=== PATIENT | male | born 1950 | race Caucasian/White ===

== ENCOUNTER → 2019-05-29 09:06 | Outpatient (BNVA) | payer MEDICARE, OTHER, SELFPAY | PROVIDERS: Family Provider Nurse Practitioner Family; Visit Provider Nurse Practitioner Family | DX: R05 Cough (principal) | CPT/HCPCS: 71046 ==

== ENCOUNTER → 2019-06-20 11:49 | Outpatient (BNVA) | payer MEDICARE, OTHER, SELFPAY | PROVIDERS: Family Provider Nurse Practitioner Family; PCP Nurse Practitioner Family; Visit Provider Nurse Practitioner Family | DX: I10 Essential (primary) hypertension (principal); G47.33 Obstructive sleep apnea (adult) (pediatric); E78.5 Hyperlipidemia, unspecified; R00.1 Bradycardia, unspecified; Z12.11 Encounter for screening for malignant neoplasm of colon | CPT/HCPCS: 80053; 80061; 84443; 85025 ==

== ENCOUNTER 2019-10-09 11:09 | Outpatient (CLI) | payer MEDICARE, OTHER, SELFPAY ==
[2019-10-09 11:22] VITALS: BMI 32.3
--- NOTE | 2019-10-09 11:26 | ECG_ITS ---
[facility] Test Date: 2019-10-09 Pat Name: Chivo Long Department: Room: Gender: Male Claims Assistant: Marley Hernández : 1950 Requested By: Farhana Diallo Order Number: [id number] Roberto MD: Octavio Weinberg M.D. Interpretive Statements NAME OF STUDY: TREADMILL STRESS ECHOCARDIOGRAM INDICATION: [Chest Pain, ] Procedure: At baseline patient's heart rate was 55 with a blood pressure of 151/83. Baseline EKG showed normal sinus rhythm with incomplete right bundle branch block. Patient achieved 10.2 METS and exercised for 6 minutes and 26 seconds on Guille protocol. He achieved a maximum heart rate of 140 that is 92% of his maximum predicted heart rate. At peak exercise, he was in sinus tachycardia with occasional PVCs. No significant ST depressions or elevations were noted. Patient did have a hypertensive response to exercise with peak blood pressure of 208/79 mmHg. He had minor chest discomfort which resolved in recovery. At the end of recovery his heart rate was 71 and a blood pressure 157/90 mmHg. Conclusion: 1) Good functional capacity with 10 METS achieved on Guille protocol. 2) No ischemic changes noted on EKG 3) Stress echocardiogram images will be interpreted separately. Electronically Signed On 10-10-2019 9:10:20 CDT by Octavio Weinberg M.D. [email or web address]
[2019-10-09 11:46] VITALS: BP 172/78; PULSE 80
--- NOTE | 2019-10-09 12:15 | USCV_ITS ---
Chivo Long Age: 69 Gender: M : 1950 Exam Date: 10/09/2019 11:24 Ordering Phys: Octavio Weinberg M.D ([email or web address]) Technologist: Kiara Emerson [place] [facility] [place]: Chest pain Rhythm: Sinus Patient History: HTN,HLD Cardiac Medications: Metoprolol,Aspirin, Statin, Non- statin Medications in past 24 hours: Aspirin, Statin, Non statin Contrast: Stress Results Protocol: Guille Total dose(mL): Exercise Duration (min:sec): 6:26 METS: 10.2 Resting HR: 55 Resting BP: 155 / 83 Peak HR: 140 Peak BP: 208 / 90 Max Predicted HR: 152 92 % Max Predicted HR Target HR: 129 Double Product: 13556 Stress Summary: Patient exercised for 6 min and 26 sec on guille protocol and achieved 10.2 METS. Good Exercise capacity The patient's target heart rate was achieved The patient had a hypertensive blood pressure response BP Response: Normal Reason for Termination: Test terminated after reaching target heart rate (85% max predicted) Cardiac Symptoms: Chest pain, Pt stated occacional twinges of brief chest pain during test. ECG Analysis Resting ECG: Normal sinus rhythm Stress ECG: Sinus tachycardia. No significant ST-T wave changes noted. Arrhythmia: Occasional PVCs at peak heart rate. MEASUREMENTS (Male/Female) Normal Values FINDINGS At baseline echo shows normal LV systolic function with EF of 55 to 60%. No regional wall motion abnormalities are noted. At peak exercise, no regional wall motion abnormalities and LV EF of more than 70%. CONCLUSIONS Normal exercise stress test Baseline LV systolic function is normal with EF of 55 to 60%. No regional wall motion abnormalities at target heart rate with EF of more than 70%. Some of the images were obtained at 3-5 beat lower than target heart rate, which reduces the sensitivity of the test, however given his good exercise capacity (>10 METS achieved) and no ischemic changes on EKG it is a normal exercise stress test Octavio Weinberg MD (Electronically Signed) Final Date: 10 October 2019 09:25 S
== END 2019-10-09 11:10 | disposition home or self-care (01) ==
LOC: CDL 11:10
PROVIDERS: PCP Nurse Practitioner Family; Visit Provider Family Medicine
DX: R07.9 Chest pain, unspecified (principal)
CPT/HCPCS: 93017; 93350

== ENCOUNTER → 2019-12-27 11:33 | Outpatient (BNVA) | payer MEDICARE, OTHER, SELFPAY | PROVIDERS: PCP Nurse Practitioner Family; Visit Provider Family Medicine | DX: E78.5 Hyperlipidemia, unspecified (principal); I10 Essential (primary) hypertension; K63.5 Polyp of colon; K21.9 Gastro-esophageal reflux disease without esophagitis | CPT/HCPCS: 80053; 80061; 85025 ==

== ENCOUNTER → 2020-01-11 10:24 | Outpatient (BNVA) | payer MEDICARE, OTHER, SELFPAY | PROVIDERS: PCP Nurse Practitioner Family; Visit Provider Surgery | DX: Z20.828 Contact with and (suspected) exposure to other viral communicable diseases (principal); Z01.812 Encounter for preprocedural laboratory examination | CPT/HCPCS: 87635 ==

== ENCOUNTER 2020-01-16 08:21 | Day surgery (SDC) | payer MEDICARE, OTHER, SELFPAY ==
[2020-01-15 07:53] VITALS: BMI 32.3
[2020-01-16 08:48] VITALS: BP 121/73; PULSE 48; RESP 18; TEMP 35.8; O2SAT 98
[2020-01-16] MEDS: sodium chloride 0.9% 1,000 ML 30 ML IV (08:51)
--- NOTE | 2020-01-16 09:49 | P.ANESASSM_ITS ---
Pre-Anesthetic Assessment Pre-Anesthetic Assessment: Height/Weight: Height 1.68 m Weight 90.718 kg Temp Pulse Resp BP Pulse Ox 96.5 F L 48 L 18 121/73 98 01/16/20 08:48 01/16/20 08:48 01/16/20 08:48 01/16/20 08:48 01/16/20 08:48 Preop Diagnosis: History of colon polyps Proposed Procedure: Operation Date: 01/16/20 09:30 Proposed Procedures p Colonoscopy 13061 K63.5(Not Applicable) - Jesse Hilario MD Was Beta Thiago taken within 24 hours: Yes Last intake: Intake Last Liquid Date 01/15/20 Last Liquid Time 21:00 Last Solid Date 02/13/20 Last Solid Time 19:00 Social: Social History: No alcohol and No tobacco Exam: Pre-Anes Outpt Exam: alert, oriented x 3, clear to auscultation bilaterally and regular rate & rhythm Airway: Submandibular: WNL Cervical ROM: WNL MP: 2 Dentition: Full Pulmonary: Pulmonary: Asthma CV/HEM: CV/HEM: CAD and HTN : : None reported Hepatic: Hepatic: None reported GI: GI: GERD Metabolic: Metabolic: Morbid obesity Musc/skel: Musc/skel: None reported Neuropsych: Neuropsych: None reported Anesthetic Plan: ASA status: 3 Anesthesia: MAC Risk of > 500 ml blood loss (7ml/kg in children): No Meds/Allergies Current Medications: Current Medications Generic Name Dose Route Start Last Admin Trade Name Freq PRN Reason Stop Dose Admin Sodium Chloride 1,000 mls @ 30 ml s/hr 01/16/20 08:45 01/16/20 08:51 Sodium Chloride 0.9% IV 30 mls/hr .Q24H DONNA Administration PFSH Anesthesia PFSH: Medical History CKD (chronic kidney disease) Hyperlipidemia Hypertension MYRIAM (obstructive sleep apnea) Presbycusis Surgical History No pertinent past surgical history Family History Mother , age 86 Lung disease Social History Smoking and tobacco status: never smoked Second hand smoke exposure: No Alcohol intake: current Alcohol intake frequency: few times a month Lives independently: Yes Household members: spouse Housing: House Marital status: service: Yes Current occupational status: employed Current occupation: [employer] History of recent travel: No Current gender identity: Male Data Anesthesia Cardiac Studies: No Data to Display
--- NOTE | 2020-01-16 09:57 | W.PM.OPSUD ---
Surgery/Procedure H&P Update DATE OF PROCEDURE: January 16, 2020 DATE H&P PERFORMED: 01/07/20 H&P UPDATE INFORMATION: I have reviewed H&P completed within last 30 days, I have examined patient prior to procedure and No changes to prior documentation PREOP DIAGNOSIS: History of colon polyps PRIMARY INDICATION FOR PROCEDURE: The same PLANNED PROCEDURE: Operation Date: 01/16/20 09:30 Proposed Procedures p Colonoscopy 82681 K63.5(Not Applicable) - Jesse Hilario MD
[2020-01-16 10:34] VITALS: BP 110/64; PULSE 60; RESP 18; TEMP 36.8; O2SAT 96
[2020-01-16 10:50] VITALS: BP 118/90; PULSE 60; O2SAT 95
--- NOTE | 2020-01-16 13:52 | ANE.PACU2 ---
Inpatient post-anesthesia follow up: Airway intact: Yes Vital signs: Temperature 98.2 F Pulse Rate 60 Respiratory Rate 18 Blood Pressure 118/90 Pulse Oximetry 95 Oxygen Delivery Me thod Room Air Oxygen Flow Rate Fraction of Inspir ed Oxygen Hydration adequate: Yes Nausea and vomiting: No Pain level: 1 Mental status: Baseline
== END 2020-01-16 11:07 | disposition home or self-care (01) ==
PROVIDERS: PCP Family Medicine; Visit Provider Surgery
PROC: 0DJD8ZZ Inspection of Lower Intestinal Tract, Via Natural or Artificial Opening Endoscopic (ICD-10-PCS; CPT 45378; principal; 2020-01-16 09:30)
DX: Z12.11 Encounter for screening for malignant neoplasm of colon (principal); Z86.010 Personal history of colon polyps; J45.909 Unspecified asthma, uncomplicated; I25.10 Atherosclerotic heart disease of native coronary artery without angina pectoris; K21.9 Gastro-esophageal reflux disease without esophagitis; E66.01 Morbid (severe) obesity due to excess calories; Z68.32 Body mass index [BMI] 32.0-32.9, adult; E78.5 Hyperlipidemia, unspecified; G47.33 Obstructive sleep apnea (adult) (pediatric); I12.9 Hypertensive chronic kidney disease with stage 1 through stage 4 chronic kidney disease, or unspecified chronic kidney disease; N18.9 Chronic kidney disease, unspecified
CPT/HCPCS: 12345; G0121; J2704; J3490; J7030

== ENCOUNTER → 2020-01-23 16:40 | Outpatient (BNVA) | payer MEDICARE, OTHER, SELFPAY | PROVIDERS: PCP Family Medicine; Visit Provider Nurse Practitioner Family | DX: Z20.828 Contact with and (suspected) exposure to other viral communicable diseases (principal); R53.83 Other fatigue | CPT/HCPCS: 80053; 82607; 83735; 84443; 85025; 87635 ==

== ENCOUNTER → 2020-05-21 10:40 | Outpatient (BNVA) | payer MEDICARE, OTHER, SELFPAY | PROVIDERS: PCP Family Medicine; Visit Provider Nurse Practitioner Family | DX: R07.9 Chest pain, unspecified (principal); I25.10 Atherosclerotic heart disease of native coronary artery without angina pectoris | CPT/HCPCS: 71046 ==

== ENCOUNTER 2020-05-23 09:26 | Outpatient (CLI) | payer MEDICARE, OTHER, SELFPAY ==
--- NOTE | 2020-05-23 09:30 | CT_ITS ---
WS: [id number] CT CHEST INTRAVENOUS CONTRAST HISTORY: R07.9 - Chest pain, unspecified TECHNIQUE: Contiguous 5 mm axial imaging performed on the thorax. Coronal and sagittal reformats are submitted. All CT scans at [facility] use at least one of these dose optimization techniq ues: automated exposure control; mA and/or kV adjustment per patient size (includes targeted exams wh ere dose is matched to clinical indication); or iterative reconstruction. CONTRAST: Visipaque 320; 95 mL IV. DLP: 900.48 mGy.cm COMPARISON: None available. Lungs and central airway: Normal. Pleura: Normal. No pleural effusion. Heart and pericardium: Normal size heart with no pericardial effusion. Mediastinum and camilo: No mediastinum or hilar adenopathy. Vessels: Mild atherosclerosis aorta and coronary arteries. Normal size pulmonary artery. Chest wall and lower neck: No soft tissue masses. Upper abdomen: Mild hepatic steatosis and hepatomegaly. No bile duct dilatation. Osseous structures: No destructive process. CT/CT chest w con* [id number] IMPRESSION: 1. No pneumonia or pulmonary mass. 2. Mild atherosclerosis aorta and LEFT anterior descending coronary artery. 3. Mild hepatic steatosis. 4. No adenopathy.
[2020-05-23 10:01] LABS: Blood Urea Nitrogen 17 mg/dL (8-23); Glomerular Filtration Rate 54.9 mL/min (90-130)
[2020-05-23] MEDS: iodixanol 320 mg/mL 100mL Btl IV (10:39)
== END 2020-05-23 09:27 | disposition home or self-care (01) ==
PROVIDERS: PCP Family Medicine; Visit Provider Nurse Practitioner Family
DX: R07.9 Chest pain, unspecified (principal); K76.0 Fatty (change of) liver, not elsewhere classified; I70.0 Atherosclerosis of aorta
CPT/HCPCS: 71260; 82565; 84520

== ENCOUNTER → 2020-06-23 12:14 | Outpatient (BNVA) | payer MEDICARE, OTHER, SELFPAY | PROVIDERS: PCP Family Medicine; Visit Provider Family Medicine | DX: E78.5 Hyperlipidemia, unspecified (principal); I10 Essential (primary) hypertension; K21.9 Gastro-esophageal reflux disease without esophagitis; Z68.33 Body mass index [BMI] 33.0-33.9, adult | CPT/HCPCS: 80053; 80061; 84443; 85025 ==

== ENCOUNTER → 2020-06-30 10:04 | Outpatient (BNVA) | payer MEDICARE, OTHER, SELFPAY | PROVIDERS: PCP Family Medicine; Visit Provider Family Medicine | DX: R79.89 Other specified abnormal findings of blood chemistry (principal) | CPT/HCPCS: 84439; 84443; 84481 ==

== ENCOUNTER → 2020-11-17 13:30 | Outpatient (BNVA) | payer MEDICARE, OTHER, SELFPAY | PROVIDERS: PCP Family Medicine; Visit Provider Nurse Practitioner Family | DX: R41.0 Disorientation, unspecified (principal); R00.1 Bradycardia, unspecified; I10 Essential (primary) hypertension; Z23 Encounter for immunization; E78.5 Hyperlipidemia, unspecified; N18.9 Chronic kidney disease, unspecified | CPT/HCPCS: 80053; 80061; 82607; 83735; 84443; 85025 ==

== ENCOUNTER 2020-12-02 07:39 | Outpatient (CLI) | payer MEDICARE, OTHER, SELFPAY ==
--- NOTE | 2020-12-02 08:00 | MR_ITS ---
WS: [id number] MRI HEAD WITH CONTRAST TECHNIQUE: Sagittal T1, T2 axial, T2 axial FLAIR, axial susceptibility weighted imaging, axial diffus ion weighted images, and coronal T2 images were obtained. Pre and post-T1 axial and post T1 coronal i mages. ADC and FSPGR images. CLINICAL INFORMATION: R41.0 - Disorientation, unspecified COMPARISON: None. FINDINGS: No evidence of restricted diffusion to suggest acute ischemia. Ventricular system and basal cisterns are patent. No hemosiderin on susceptibly weighted images. Minimal small vessel changes. Moderate par enchymal volume loss. Normal posterior fossa. Normal vascular flow voids at the skull base. No extra- axial fluid collections. No evidence of mass or mass effect. Mild mucosal thickening paranasal sinuse s. Mastoid air cells well aerated. No hemosiderin on susceptibly weighted images. Normal optic chiasm and pituitary infundibulum. Tempor al lobes and hippocampal formations are normal in appearance. No abnormal gadolinium enhancement. Nor mal dural venous sinuses. MR/MR head wo/w con [id number] IMPRESSION: 1. No evidence of restricted diffusion to suggest acute ischemia. 2. Minimal small vessel changes with moderate parenchymal volume loss. 3. Temporal lobes and hippocampal formations are normal in appearance. 4. No hemosiderin on the susceptibly weighted images. 5. No abnormal intracranial enhancement.
[2020-12-02] MEDS: gadobenate dimeglumine 20 mL vial IV (08:50)
== END 2020-12-02 07:40 | disposition home or self-care (01) ==
LOC: RADSHAW 07:40
PROVIDERS: PCP Family Medicine; Visit Provider Nurse Practitioner Family
DX: R41.0 Disorientation, unspecified (principal)
CPT/HCPCS: 70553; A9577

== ENCOUNTER 2021-01-05 06:53 | Outpatient (CLI) | payer MEDICARE, OTHER, SELFPAY ==
--- NOTE | 2021-01-05 | USCV_ITS ---
Chivo Long Age: 70 Gender: M : 1950 Exam Date: 01/05/2021 07:39 Ordering Phys: Ayleen Rock OPTICAL ENGINEERING MANAGER Technologist: Christina Kline [place] [facility] [place] Indication: DIZZINESS Risk Factors: Previous Vascular Surgery: Right Brachial BP: / Left Brachial BP: / Right Left Velocity (cm/s) Spectral Plaque Velocity (cm/s) Spectral Plaque Syst/Diast Broadening Syst/Diast Broadening 99.20/ 15.40 Prox CCA 108.90/ 28.70 70.10/ 23.10 Mid CCA 85.40 / 31.60 69.20/ 25.60 Distal CCA 88.20 / 25.40 50.70/ 19.20 Prox ICA 59.80 / 29.50 79.70/ 33.50 Mid ICA 92.70 / 34.50 88.90/ 41.00 Distal ICA 75.60 / 31.50 55.90 ECA 69.10 0.90 ICA/CCA 0.85 Antegrade Vertebral Antegrade 60.70/ 23.10 cm/s 54.00/ 26.50 cm/s Tri Subclavian Tri 53.60 100.3 0 FINDINGS Comparison: none available. No significant elevation of systolic or diastolic velocities. Waveforms are normal. Mild bilateral scattered calcified plaque through the bifurcations. CONCLUSIONS Bilateral ICA stenosis less than 50%. Mild carotid atherosclerosis. Dr. Pat Lucio DO (Electronically Signed) Final Date: 05 January 2021 08:19 S
--- NOTE | 2021-01-05 08:00 | USCV_ITS ---
Chivo Long Age: 70 Gender: M : 1950 Exam Date: 01/05/2021 07:17 Ordering Phys: Ayleen RockP HEAD SOFT SUGAR OPERATOR Technologist: Christina Kline [place] [facility] [place]: bradycardia BP: 135 / 80 HR: 43 Rhythm: Sinus Technical Quality: Adequate MEASUREMENTS (Male / Female) Normal Values 2D ECHO LV Diastolic Diameter PLAX 5.1 cm 4.2 - 5.9 / 3.9 - 5.3 cm LV Systolic Diameter PLAX 2.9 cm IVS Diastolic Thickness 1.2 cm 0.6 - 1.0 / 0.6 - 0.9 cm IVS Systolic Thickness 1.9 cm LVPW Diastolic Thickness 1.4 cm 0.6 - 1.0 / 0.6 - 0.9 cm LVPW Systolic Thickness 2.5 cm LVOT Diameter 2.0 cm LV Ejection Fraction 2D Teich 74.3 % LV Ejection Fraction MOD 2C 66.8 % LV Ejection Fraction 2C AL 68.2 % LA Diameter 3.1 cm LA Width 2.9 cm LA Height 4.6 cm RA Width 3.1 cm RA Height 3.7 cm Aorta at Sinotubular Diameter 3.0 cm M-MODE Aortic Annulus Diameter 3.1 cm LA Ao Ratio MM 1.0 MV E Point Septal Separation 0.6 cm DOPPLER AV Peak Velocity 137.0 cm/s LVOT Peak Velocity 85.0 cm/s AV Area Cont Eq vti 2.2 cm squared AV Area Cont Eq pk 2.0 cm squared MV Peak Velocity 90.0 cm/s MV Area PHT 3.6 cm squared Mitral E to A Ratio 1.0 MV E' Velocity 43.5 cm/s Mitral E to MV E' Ratio 8.3 Mitral E to LV E' Lateral Ratio 7.9 Mitral E to LV E' Septal Ratio 8.8 TR Peak Velocity 193.7 cm/s TR Peak Gradient 15.0 mmHg TR Mean Velocity 128.6 cm/s TR Mean Gradient 7.7 mmHg TR Velocity Time Integral 46.1 cm TV Peak E Velocity 64.0 cm/s Right Atrial Pressure 3.0 mmHg Pulmonary Artery Systolic Pressu 18.0 mmHg PV Peak Velocity 71.0 cm/s RV Acceleration Time 0.1 s RV Ejection Time 0.4 s RV AcT/ET 0.2 FINDINGS Left Ventricle Normal left ventricular size. LV systolic function is normal with EF of 55-60%. No regional wall motion abnormalities. Normal diastolic filling pattern. Right Ventricle The right ventricle is normal in size and function. Right Atrium The right atrium is normal in size. Left Atrium The left atrium is normal in size. Mitral Valve Moderate mitral annular calcification is seen without significant stenosis or prolapse. There is mild mitral regurgitation. Aortic Valve Structurally normal aortic valve without significant sclerosis or stenosis. There is no aortic regurgitation. Tricuspid Valve Structurally normal tricuspid valve without significant stenosis or regurgitation. Insufficient TR jet to calculate RVSP Pulmonic Valve Structurally normal pulmonic valve without significant stenosis. There is no pulmonic regurgitation. Pericardium Normal pericardium without effusion. Aorta Normal ascending aorta dimension. CONCLUSIONS LV systolic function is normal with EF 55 to 60%. Normal diastolic function. Moderate mitral annular calcification. Mild mitral regurgitation. No comparison studies are available. Octavio Weinberg MD (Electronically Signed) Final Date: 12 January 2021 11:08 S
== END 2021-01-05 06:54 | disposition home or self-care (01) ==
PROVIDERS: PCP Family Medicine; Visit Provider Nurse Practitioner Family
DX: R42 Dizziness and giddiness (principal); I65.23 Occlusion and stenosis of bilateral carotid arteries
CPT/HCPCS: 93306; 93880

== ENCOUNTER → 2021-06-05 08:56 | Outpatient (BNVA) | payer MEDICARE, OTHER, SELFPAY | PROVIDERS: PCP Family Medicine; Visit Provider Family Medicine | DX: Z09 Encounter for follow-up examination after completed treatment for conditions other than malignant neoplasm (principal); E78.5 Hyperlipidemia, unspecified; I10 Essential (primary) hypertension; K21.9 Gastro-esophageal reflux disease without esophagitis; Z12.5 Encounter for screening for malignant neoplasm of prostate; R07.9 Chest pain, unspecified | CPT/HCPCS: 80053; 80061; 84443; 85025; G0103 ==

== ENCOUNTER → 2021-12-16 09:56 | Outpatient (BNVA) | payer MEDICARE, OTHER, SELFPAY | PROVIDERS: PCP Family Medicine; Visit Provider Family Medicine | DX: E78.5 Hyperlipidemia, unspecified (principal); I10 Essential (primary) hypertension; K21.9 Gastro-esophageal reflux disease without esophagitis; Z23 Encounter for immunization | CPT/HCPCS: 80053; 80061; 84443; 85025 ==

== ENCOUNTER 2022-03-09 13:57 | Outpatient (CLI) | payer MEDICARE, OTHER, SELFPAY ==
--- NOTE | 2022-03-09 14:19 | XR_ITS ---
WS: [id number] Exam: XR lumbar spine 6V w f/e [id number] Date/Time of Exam: 03/09/2022 2:34 PM Reason For Exam: M54.50 - Low back pain, unspecified No acute fracture or dislocation. No significant flexion or extension instability. Moderate degenerat kenyetta narrowing of the L3-4 disc. Spondylosis noted. Facet arthropathy at L4-5 and L5-S1. Sacralization of L5. XR/XR lumbar spine 6V w f/e [id number] IMPRESSION: 1. No fracture or instability identified. 2. Degenerative changes as detailed above.
== END 2022-03-09 13:58 | disposition home or self-care (01) ==
PROVIDERS: PCP Family Medicine; Visit Provider Family Medicine
DX: M48.061 Spinal stenosis, lumbar region without neurogenic claudication (principal); M47.816 Spondylosis without myelopathy or radiculopathy, lumbar region; M47.817 Spondylosis without myelopathy or radiculopathy, lumbosacral region
CPT/HCPCS: 72114

== ENCOUNTER 2022-04-14 06:00 | Outpatient (RCR) | payer MEDICARE, OTHER, SELFPAY | END 2022-05-14 23:59 | disposition home or self-care (01) | LOC: TPT 06:00 | PROVIDERS: PCP Family Medicine; Visit Provider Family Medicine | DX: M54.50 Low back pain, unspecified (principal); G89.29 Other chronic pain | CPT/HCPCS: 97110; 97162 ==

== ENCOUNTER 2022-05-15 06:00 | Outpatient (RCR) | payer MEDICARE, OTHER, SELFPAY | END 2022-06-10 23:59 | disposition home or self-care (01) | LOC: TPT 06:00 | PROVIDERS: PCP Family Medicine; Visit Provider Family Medicine | DX: G89.29 Other chronic pain (principal); M54.50 Low back pain, unspecified | CPT/HCPCS: 97110 ==

== ENCOUNTER → 2022-06-15 12:00 | Outpatient (BNVA) | payer MEDICARE, OTHER, SELFPAY | PROVIDERS: PCP Family Medicine; Visit Provider Family Medicine | DX: E78.5 Hyperlipidemia, unspecified (principal); I10 Essential (primary) hypertension; K21.9 Gastro-esophageal reflux disease without esophagitis; M54.9 Dorsalgia, unspecified; Z12.5 Encounter for screening for malignant neoplasm of prostate; Z23 Encounter for immunization; Z79.899 Other long term (current) drug therapy | CPT/HCPCS: 80053; 80061; 84443; 85025; G0103 ==

== ENCOUNTER → 2023-03-21 10:00 | Outpatient (BNVA) | payer MEDICARE, OTHER, SELFPAY | PROVIDERS: PCP Family Medicine; Visit Provider Family Medicine | DX: I10 Essential (primary) hypertension (principal); E78.5 Hyperlipidemia, unspecified; K21.9 Gastro-esophageal reflux disease without esophagitis; Z79.899 Other long term (current) drug therapy | CPT/HCPCS: 80053; 80061; 84443; 85025 ==

== ENCOUNTER → 2023-07-28 07:58 | Outpatient (BNVA) | payer MEDICARE, OTHER, SELFPAY | PROVIDERS: PCP Family Medicine; Visit Provider Nurse Practitioner Family | DX: L82.0 Inflamed seborrheic keratosis (principal); L57.0 Actinic keratosis; S30.861A Insect bite (nonvenomous) of abdominal wall, initial encounter; X58.XXXA Exposure to other specified factors, initial encounter; D22.5 Melanocytic nevi of trunk; L81.4 Other melanin hyperpigmentation; L57.8 Other skin changes due to chronic exposure to nonionizing radiation; L85.3 Xerosis cutis | CPT/HCPCS: 17000; 17110; 99204 ==

== ENCOUNTER → 2023-09-27 13:00 | Outpatient (BNVA) | payer MEDICARE, OTHER, SELFPAY | PROVIDERS: PCP Family Medicine; Visit Provider Family Medicine | DX: Z12.5 Encounter for screening for malignant neoplasm of prostate (principal); I10 Essential (primary) hypertension; E78.5 Hyperlipidemia, unspecified; K21.9 Gastro-esophageal reflux disease without esophagitis | CPT/HCPCS: 80053; 80061; 84443; 85025; G0103 ==

== ENCOUNTER → 2024-03-27 09:27 | Outpatient (BNVA) | payer MEDICARE, OTHER, SELFPAY | PROVIDERS: Family Provider Nurse Practitioner Family; PCP Nurse Practitioner Family; Visit Provider Nurse Practitioner Family | DX: M25.511 Pain in right shoulder (principal); I10 Essential (primary) hypertension; E55.9 Vitamin D deficiency, unspecified; R07.9 Chest pain, unspecified; R93.6 Abnormal findings on diagnostic imaging of limbs; M75.101 Unspecified rotator cuff tear or rupture of right shoulder, not specified as traumatic; S41.011A Laceration without foreign body of right shoulder, initial encounter; M19.011 Primary osteoarthritis, right shoulder; X58.XXXA Exposure to other specified factors, initial encounter | CPT/HCPCS: 73030; 80053; 80061; 82306; 82607; 83735; 85025 ==

== ENCOUNTER 2024-04-02 09:09 | Outpatient (CLI) | payer MEDICARE, OTHER, SELFPAY ==
--- NOTE | 2024-04-02 09:30 | MR_ITS ---
WS: [id number] MRI RIGHT SHOULDER NONCONTRAST TECHNIQUE: Sagittal T2, coronal T1, T2 and proton density imaging. Axial gradient PDE imaging. CLINICAL INFORMATION: M25.511 - Pain in right shoulder COMPARISON: None. FINDINGS: Moderate degenerative arthritis AC joint with fluid and edema. Mild downsloping acromion with subacromial spurring. Impingement distal supraspinatus. Small amount of subacromial subdeltoid fluid. Small bursal surface tear distal supraspinatus deep to the acromion. Supraspinatus and infraspinatus are o therwise intact. Normal teres minor. Small subcoracoid effusion. Tendinopathy with partial intrasubstance tear involving the distal supraspinatus tendon and transverse ligament. Slight medial subluxation of the intra-articular biceps tendon. Tendinopathy with partial intrasubstance tear intra-articular biceps tendon. Moderate degenerative narrowing glenohumeral articulation. Biceps labral anchor appears intact. MR/MR shoulder RT wo con* [id number] IMPRESSION: 1. Moderate joint arthritis AC joint fluid and edema. 2. Subacromial impingement distal supraspinatus with small intrasubstance tear . 3. Tendinopathy with intrasubstance tear involving the distal subscapularis. 4. Slight medial subluxation of the biceps tendon within the bicipital groove. 5. Tendinopathy with partial intrasubstance tear involving the intra-articular biceps tendon which appears intact.
== END 2024-04-02 09:10 | disposition home or self-care (01) ==
PROVIDERS: Family Provider Nurse Practitioner Family; PCP Nurse Practitioner Family; Visit Provider Nurse Practitioner Family
DX: M25.511 Pain in right shoulder (principal); R93.6 Abnormal findings on diagnostic imaging of limbs; S46.811A Strain of other muscles, fascia and tendons at shoulder and upper arm level, right arm, initial encounter; X58.XXXA Exposure to other specified factors, initial encounter; M75.41 Impingement syndrome of right shoulder; M19.011 Primary osteoarthritis, right shoulder
CPT/HCPCS: 73221

== ENCOUNTER → 2024-04-13 07:57 | Outpatient (BNVA) | payer MEDICARE, OTHER, SELFPAY | PROVIDERS: Family Provider Nurse Practitioner Family; PCP Nurse Practitioner Family; Visit Provider Nurse Practitioner | DX: M19.011 Primary osteoarthritis, right shoulder (principal); M25.811 Other specified joint disorders, right shoulder; M67.911 Unspecified disorder of synovium and tendon, right shoulder | CPT/HCPCS: 20610; 73030; 99204; J1100; J2795; J3301 ==

== ENCOUNTER → 2024-04-20 11:51 | Outpatient (BNVA) | payer MEDICARE, OTHER, SELFPAY | PROVIDERS: PCP Nurse Practitioner Family; Visit Provider Nurse Practitioner Family | DX: R05.9 Cough, unspecified (principal) | CPT/HCPCS: 87400; 87426 ==

== ENCOUNTER → 2024-05-03 13:37 | Outpatient (BNVA) | payer MEDICARE, OTHER, SELFPAY | PROVIDERS: PCP Nurse Practitioner Family; Visit Provider Nurse Practitioner Family | DX: Z79.899 Other long term (current) drug therapy (principal) | CPT/HCPCS: 80076 ==

== ENCOUNTER → 2024-07-13 08:35 | Outpatient (BNVA) | payer MEDICARE, OTHER, SELFPAY | PROVIDERS: PCP Nurse Practitioner Family; Visit Provider Nurse Practitioner | DX: M19.011 Primary osteoarthritis, right shoulder (principal); M25.811 Other specified joint disorders, right shoulder; M67.911 Unspecified disorder of synovium and tendon, right shoulder | CPT/HCPCS: 20610; 99213; J1100; J2795; J3301; J9999 ==

== ENCOUNTER → 2024-08-01 08:36 | Outpatient (BNVA) | payer MEDICARE, OTHER, SELFPAY | PROVIDERS: PCP Nurse Practitioner Family; Visit Provider Nurse Practitioner Family | DX: L81.4 Other melanin hyperpigmentation (principal); L57.8 Other skin changes due to chronic exposure to nonionizing radiation; D22.5 Melanocytic nevi of trunk; L82.1 Other seborrheic keratosis; S50.862A Insect bite (nonvenomous) of left forearm, initial encounter; S50.861A Insect bite (nonvenomous) of right forearm, initial encounter; X58.XXXA Exposure to other specified factors, initial encounter; L82.0 Inflamed seborrheic keratosis; L29.89 Other pruritus; R20.8 Other disturbances of skin sensation; Z78.9 Other specified health status; L53.8 Other specified erythematous conditions; R58 Hemorrhage, not elsewhere classified | CPT/HCPCS: 17000; 17110; 99213 ==

== ENCOUNTER → 2024-09-27 10:37 | Outpatient (BNVA) | payer MEDICARE, OTHER, SELFPAY | PROVIDERS: PCP Nurse Practitioner Family; Visit Provider Nurse Practitioner Family | DX: I10 Essential (primary) hypertension (principal); Z12.5 Encounter for screening for malignant neoplasm of prostate | CPT/HCPCS: 80053; 80061; 84443; 85025; G0103 ==

== ENCOUNTER → 2024-10-12 08:44 | Outpatient (BNVA) | payer MEDICARE, OTHER, SELFPAY | PROVIDERS: PCP Nurse Practitioner Family; Visit Provider Nurse Practitioner | DX: M67.911 Unspecified disorder of synovium and tendon, right shoulder (principal); M19.011 Primary osteoarthritis, right shoulder; M25.811 Other specified joint disorders, right shoulder | CPT/HCPCS: 20610; J1100; J2795; J3301; J9999 ==

== ENCOUNTER → 2025-01-14 08:25 | Outpatient (BNVA) | payer MEDICARE, OTHER, SELFPAY | PROVIDERS: PCP Nurse Practitioner Family; Visit Provider Nurse Practitioner | DX: M19.011 Primary osteoarthritis, right shoulder (principal); Z71.89 Other specified counseling | CPT/HCPCS: 20610; J1100; J2795; J3301; J9999 ==

== ENCOUNTER 2025-02-12 14:56 | Emergency (ER) | payer MEDICARE, OTHER, SELFPAY ==
[2025-02-12 15:05] VITALS: BP 169/99; PULSE 65; RESP 17; TEMP 36.8; O2SAT 96; BMI 31.9
--- NOTE | 2025-02-12 15:14 | XR_ITS ---
WS: [id number] Portable AP upright chest, 02/12/2025 Clinical Data: chest pain Comparison: Two-view chest, 05/21/2020 Findings: No nodules, masses or effusions are seen. The heart is normal. The pulmonary vascularity is not increased. No pneumonia or pneumothorax is seen. The aortic arch and descending thoracic aorta show tortuosity. Monitor leads are on the chest wall. XR/XR chest 1V portable [id number] Impression: Atherosclerosis.
--- NOTE | 2025-02-12 15:14 | ECG_ITS ---
[facility] Test Date: 2025-02-12 Pat Name: Chivo Long Department: Room: Gender: Male Line Crewman: : 1950 Requested By: Joe Ng Order Number: [id number] Mejia MD: Romeo Taylor M.D. Measurements Intervals [place] Rate: 58 P: 55 [place]: 164 QRS: 3 QRSD: 91 T: 27 QT: 371 QTc: 366 Interpretive Statements SINUS BRADYCARDIA No previous ECG available for comparison Electronically Signed On 02-14-2025 16:06:27 CLEANING SUPERVISOR by Romeo Taylor M.D. [id number]
--- NOTE | 2025-02-12 15:25 | W.ED.CHESTPA ---
HPI - Chest Pain General: Chief Complaint: Chest Pain Stated Complaint: chest pain Time Seen by Provider: 02/12/25 15:13 History of Present Illness: 74-year-old male who presents to the emergency room with complaint of intermittent chest pain. He states he has had it for the last 2 days. He had gone to urgent care clinic he feels like it is reflux has had this several times before. No associated shortness of breath no radiation of his discomfort. Associated symptoms: Reports abdominal pain; Deny dyspnea or fever(s) Related Data Home Medications ?Medication ?Instructions ?Recorded ?Confirmed ascorbate calcium (vitamin C) 500 500 mg PO DAILY 05/07/19 02/12/25 mg tablet garlic 1 mg PO DAILY 05/07/19 02/12/25 ginkgo biloba 40 mg tablet 40 mg PO DAILY 05/07/19 02/12/25 glucosamine HCl 1,500 mg tablet 3,000 mg PO DAILY 05/07/19 02/12/25 magnesium aspartate HCl 61 mg (615 61 mg PO DAILY 05/07/19 02/12/25 mg) tablet,delayed release multivitamin (Daily Multi-Vitamin 1 tab PO DAILY 05/07/19 02/12/25 tablet) omega-3 fatty acids 1,000 mg 1,000 mg PO BID 05/07/19 02/12/25 capsule saw palmetto 160 mg capsule 160 mg PO DAILY 05/07/19 02/12/25 vitamin B complex (B 1 tab PO DAILY 05/07/19 02/12/25 Complex-Vitamin B12 tablet) vitamin E (dl, acetate) 450 mg 1,000 unit PO DAILY 05/07/19 02/12/25 (1,000 unit) capsule Previous Rx's ?Medication ?Instructions ?Recorded nitroglycerin 0.4 mg sublingual See Rx Instructions .Route 06/23/21 tablet .COMPLEX #25 tabs triamcinolone acetonide 0.1 % 1 applic dental BID #5 grams 01/18/22 dental paste atorvastatin 40 mg tablet See Rx Instructions .Route 06/15/22 .COMPLEX #90 tabs celecoxib 200 mg capsule (Celebrex) 200 mg PO BID #180 caps 06/15/22 fenofibrate 160 mg tablet See Rx Instructions .Route 06/15/22 .COMPLEX #90 tabs pantoprazole 40 mg tablet,delayed 40 mg PO DAILY #90 tabs 03/27/24 release (Protonix) cpap 9cm #1 ea 05/22/24 nitroglycerin 0.4 mg sublingual 0.4 mg sublingual Q5M PRN chest 10/16/24 tablet pain #20 tabs lisinopril 20 mg tablet 20 mg PO DAILY #90 tabs 11/12/24 sucralfate 1 gram tablet (Carafate) 1 g PO Q6H PRN Reflux 4 weeks #112 02/12/25 tabs Allergies Allergy/AdvReac Type Severity Reaction Status Date / Time shellfish derived Allergy ALGY-Rash Verified 02/12/25 15:10 Review of Systems Const: Denies: fever(s) or chills Card: Reports: chest pain Resp: Denies: dyspnea GI: Reports: abdominal pain : Denies: dysuria, urinary frequency or urinary urgency Musc: Denies: neck pain or back pain Skin/Breast: Denies: rash PFSH ED PFSH: Medical History High risk medication use Tendinopathy of right shoulder Impingement of right shoulder 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, right shoulder Colon polyp Presbycusis CKD (chronic kidney disease) Hyperlipidemia Hypertension MYRIAM (obstructive sleep apnea) Surgical History History of colonoscopy with polypectomy (~2014) No pertinent past surgical history Family History Mother , age 86 Lung disease Social History Smoking and tobacco/nicotine status: never used tobacco/nicotine Second hand smoke exposure: No Alcohol intake: current Alcohol intake frequency: few times a month Substance/Drug Use: never Lives independently: Yes Household members: spouse Housing: House Marital status: service: Yes Current occupational status: employed Current occupation: [employer] Current gender identity: Male Physical Exam Const: COMMON NORMALS: no acute distress GENERAL APPEARANCE: cooperative and comfortable ORIENTATION/CONSCIOUSNESS: Yes awake, Yes oriented to person, Yes oriented to place and Yes oriented to time HENMT: COMMON NORMALS: normocephalic, atraumatic and hearing grossly normal bilaterally HEAD & SCALP: normocephalic and atraumatic Resp: COMMON NORMALS: normal respiratory effort, No retractions, No use of accessory muscles and clear to auscultation bilaterally AUSCULTATION: clear to auscultation bilaterally Cardio: COMMON NORMALS: regular rate, regular rhythm and No murmurs present (Cardio) RATE: regular rate RHYTHM: regular rhythm GI: COMMON NORMALS: Soft to palpation and No hepatosplenomegaly present AUSCULTATION: Yes normoactive bowel sounds PALPATION: Yes Soft to palpation, No Tenderness to palpation present (GI), No Guarding due to palpation present (GI) and Yes No hepatosplenomegaly present Extremity: COMMON NORMALS: normal to inspection, capillary refill normal, no clubbing, cyanosis or edema, no calf tenderness and no pedal edema Neuro: SENSORIUM/ORIENTATION: Yes oriented to person, Yes oriented to place and Yes oriented to time Skin: COMMON NORMALS: no rashes or lesions noted GENERAL SKIN EXAM: no rashes or lesions noted Course Vital Signs: Vital signs: Vital Signs Temperature 98.3 F 02/12/25 15:05 Pulse Rate 61 02/12/25 17:14 Respiratory Rate 17 02/12/25 15:05 Blood Pressure 148/83 02/12/25 17:14 Pulse Oximetry 94 02/12/25 17:14 Oxygen Delivery Me thod Room Air 02/12/25 15:46 MDM - Chest Pain Medical Decision Making Cardiac enzymes and EKG unremarkable. Chest x-ray shows no infiltrates effusions or increased pulmonary vascular markings reviewed by myself. Patient states he is feeling better will discharge patient home. Recommend that he follow-up with general surgery for an EGD he is on a PPI and continues to have considerable symptoms. Medical Records I reviewed the patient's medical records. Lab Data I reviewed the patient's lab results. 02/12/25 15:20 02/12/25 15:20 Radiology Impressions Chest X-Ray 02/12/25 15:14 Impression: Atherosclerosis. Laboratory Results WBC 5.49 10^3/uL (3.29-11.43) 02/12/25 15:20 RBC 4.88 10^6/uL (3.85-5.65) 02/12/25 15:20 Hgb 15.30 g/dL (11.27-16.99) 02/12/25 15:20 Hct 44.6 % (37-53) 02/12/25 15:20 MCV 91.4 fl (82-101) 02/12/25 15:20 MCH 31.4 pg (27-33) 02/12/25 15:20 MCHC 34.3 g/dL (30-55) 02/12/25 15:20 RDW 11.7 % (12.1-15.1) L 02/12/25 15:20 Plt Count 250 10^3/cmm (157-399) 02/12/25 15:20 MPV 9.7 fL (7.4-10.4) 02/12/25 15:20 Neut % (Auto) 57.8 % 02/12/25 15:20 Lymph % (Auto) 28.6 % 02/12/25 15:20 Josephine % (Auto) 8.7 % 02/12/25 15:20 Eos % (Auto) 3.8 % 02/12/25 15:20 Baso % (Auto) 0.9 % 02/12/25 15:20 Neut # (Auto) 3.17 10^3/uL (1.8-7.7) 02/12/25 15:20 Lymph # (Auto) 1.6 10^3/uL (0.8-4.8) 02/12/25 15:20 Josephine # (Auto) 0.5 10^3/uL (0.2-0.9) 02/12/25 15:20 Eos # (Auto) 0.2 10^3/uL (0.0-0.8) 02/12/25 15:20 Baso # (Auto) 0.1 10^3/uL (0.0-0.1) 02/12/25 15:20 Nucleated RBC % (auto) 0 % 02/12/25 15:20 Nucleated RBCs # 0.0 /100WBC 02/12/25 15:20 Sodium 137 mmol/L (136-145) 02/12/25 15:20 Potassium 4.4 mmol/L (3.5-5.1) 02/12/25 15:20 Chloride 99 mmol/L (98-107) 02/12/25 15:20 Carbon Dioxide 28 mmol/L (22-29) 02/12/25 15:20 Anion Gap 14.4 (5-19) 02/12/25 15:20 BUN 18 mg/dL (8-23) 02/12/25 15:20 Creatinine 1.2 mg/dL (0.7-1.2) 02/12/25 15:20 GFR Calculation Not Reportable 02/12/25 15:20 Glucose 100 mg/dL (65-115) 02/12/25 15:20 Calculated Osmolality 286 mOsm/kg (285-295) 02/12/25 15:20 Calcium 10.2 mg/dL (8.5-10.5) 02/12/25 15:20 Total Bilirubin 0.5 mg/dL (0.15-1.2) 02/12/25 15:20 AST 34 U/L (0-40) 02/12/25 15:20 ALT 29 U/L (0-41) 02/12/25 15:20 Alkaline Phosphatase 40 U/L (40-130) 02/12/25 15:20 Troponin T Baseline 21 ng/L (0-15) H 02/12/25 15:20 Troponin T 60 Minute 16.34 ng/L (0-15) H 02/12/25 16:09 Delta Troponin T -4.66 ABS# (0-10) L 02/12/25 16:09 Total Protein 7.0 g/dL (6.6-8.7) 02/12/25 15:20 Albumin 4.7 g/dL (3.5-5.2) 02/12/25 15:20 Globulin 2.3 g/dL (1.3-4.6) 02/12/25 15:20 All radiology interpretation(s) finalized by discharge EKG Data EKG 1: I personally reviewed and interpreted this EKG as follows: Interpretation: EKG 02/12/2025 1502 sinus bradycardia rate of 58 MN interval 164 QTc [address] changes noted. EKG 2: I personally reviewed and interpreted this EKG as follows: Interpretation: EKG 02/12/2025 1635 sinus rhythm rate of 60 MN interval 166 QTc [address] changes noted compared to EKG done earlier today no significant change Discharge Plan Discharge Patient Disposition: Home Clinical Impression: Atypical chest pain GERD (gastroesophageal reflux disease) Qualifiers: Esophagitis presence: esophagitis presence not specified Qualified Code(s): K21.9 - Gastro-esophageal reflux disease without esophagitis Condition: Stable Prescriptions: New sucralfate [Carafate] 1 gram tablet 1 g PO Q6H PRN (Reason: Reflux) 28 Days Qty: 112 0RF No Action glucosamine HCl 1,500 mg tablet 3,000 mg PO DAILY multivitamin [Daily Multi-Vitamin] Tablet 1 tab PO DAILY vitamin B complex [B Complex-Vitamin B12] Tablet 1 tab PO DAILY ascorbate calcium (vitamin C) 500 mg tablet 500 mg PO DAILY vitamin E (dl, acetate) 1,000 unit capsule 1,000 unit PO DAILY omega-3 fatty acids 1,000 mg capsule 1,000 mg PO BID ginkgo biloba 40 mg tablet 40 mg PO DAILY garlic Tablet 1 mg PO DAILY magnesium aspartate HCl 61 mg (615 mg) tablet,delayed release (DR/EC) 61 mg PO DAILY saw palmetto 160 mg capsule 160 mg PO DAILY pantoprazole [Protonix] 40 mg tablet,delayed release (DR/EC) 40 mg PO DAILY Qty: 90 3RF (DME) cpap 9cm See Rx Instructions .Route .MEDSUPPLY Qty: 1 0RF Rx Instructions: As directed nitroglycerin 0.4 mg tablet, sublingual 0.4 mg sublingual Q5M PRN (Reason: chest pain) Qty: 20 0RF Rx Instructions: do not exceed 3 doses per episode atorvastatin 40 mg tablet See Rx Instructions .ROUTE .COMPLEX Qty: 90 3RF Dose Instruction: TAKE 1 TABLET DAILY Rx Instructions: TAKE 1 TABLET DAILY celecoxib [Celebrex] 200 mg capsule 200 mg PO BID Qty: 180 3RF fenofibrate 160 mg tablet See Rx Instructions .ROUTE .COMPLEX Qty: 90 3RF Dose Instruction: TAKE 1 TABLET DAILY Rx Instructions: TAKE 1 TABLET DAILY nitroglycerin 0.4 mg tablet, sublingual See Rx Instructions .ROUTE .COMPLEX Qty: 25 0RF Dose Instruction: DISSOLVE ONE TABLET BY MOUTH UNDER THE TONGUE EVERY FIVE minutes NEEDED FOR CHEST pain DO not exceed THREE tablets PER episode Rx Instructions: DISSOLVE ONE TABLET BY MOUTH UNDER THE TONGUE EVERY FIVE minutes NEEDED FOR CHEST pain DO not exceed THREE tablets PER episode triamcinolone acetonide 0.1 % paste 1 applic DENTAL BID Qty: 5 1RF Rx Instructions: use after food and/or drink and/or oral hygiene lisinopril 20 mg tablet 20 mg PO DAILY Qty: 90 3RF Discharge Orders: Discharge ED (Routine); Ordered 02/12/25 Ordered By: Joe Crain Referrals: Ayleen Rokc FNP [Primary Care Provider, Family Practice] Discharge Diet: As Directed Discharge Activity: Increase activity as tolerated Patient Instructions: Chest Pain (ED), Diet for Stomach Ulcers and Gastritis (ED), GERD (Gastroesophageal Reflux Disease) (ED), Opioid Safety, Pain Management, Patient Portal & Dino Instructions Activity Restrictions/Additional Instructions: [facility]. It is very important that you follow up as instructed or that you return to the Emergency Department should you have concerns or if your condition changes or worsens in any way. Emergency department visits are focused on emergent conditions, in some cases you may require further evaluation on an outpatient basis. You are seen emergency room with episode of chest discomfort. Your cardiac enzymes EKG did not show any acute changes. Your blood pressure is moderately elevated recommend you follow-up with your primary care doctor for further adjustments to manage her blood pressure. Will make an appointment for you to follow-up with general surgery to consider having EGD done. (Please note that included in your discharge packet is information concerning opioid safety and pain management. This information is given to all patients were discharged from the ER regardless of their discharge diagnosis or the medicines they usually take or are prescribed.) Print Language: Bermudian Coding Level of Care Code ED [employer] Fwd Heart Score HEART Score Components History: Slightly Suspicous EKG: Normal Age: 65 or more yrs Risk Factors: No Risk Factors Known Troponin: Baseline Trop 16-45 ng/L HEART Score RESULT HEART Score: 3
[2025-02-12 15:26] LABS: Hematocrit 44.6 % (37-53); Hemoglobin 15.30 g/dL (11.27-16.99); Mean Corpuscular HGB Conc 34.3 g/dL (30-55); Mean Corpuscular Hemoglobin 31.4 pg (27-33); Mean Corpuscular Volume 91.4 fl (82-101); Nucleated Red Blood Cells % 0 %; Platelet Count 250 10^3/cmm (157-399); Red Blood Count 4.88 10^6/uL (3.85-5.65); White Blood Count 5.49 10^3/uL (3.29-11.43)
[2025-02-12 15:46] VITALS: BP 167/87; PULSE 61; O2SAT 94
[2025-02-12 15:50] LABS: Troponin(5th) Baseline 21 ng/L (0-15)
[2025-02-12 15:52] LABS: Alanine Aminotransferase 29 U/L (0-41); Albumin Level 4.7 g/dL (3.5-5.2); Alkaline Phosphatase 40 U/L (40-130); Anion Gap 14.4 (5-19); Aspartate Amino Transferase 34 U/L (0-40); Blood Urea Nitrogen 18 mg/dL (8-23); Calcium 10.2 mg/dL (8.5-10.5); Carbon Dioxide 28 mmol/L (22-29); Chloride 99 mmol/L (98-107); Globulin 2.3 g/dL (1.3-4.6); Glucose 100 mg/dL (65-115); Osmolality Calculated 286 mOsm/kg (285-295); Potassium 4.4 mmol/L (3.5-5.1); Sodium 137 mmol/L (136-145); Total Protein 7.0 g/dL (6.6-8.7)
--- NOTE | 2025-02-12 16:14 | ECG_ITS ---
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 Measurements Intervals [place] Rate: 60 P: 60 AR: 166 QRS: 0 QRSD: 92 T: 23 QT: 372 QTc: 374 Interpretive Statements SINUS RHYTHM Compared to ECG 02/12/2025 15:02:25 Sinus bradycardia no longer present Electronically Signed On 02-14-2025 17:14:55 PLATE COLORER by Romeo Taylor M.D. [email or web address]
[2025-02-12 17:14] VITALS: BP 148/83; PULSE 61; O2SAT 94
== END 2025-02-12 17:16 | disposition home or self-care (01) ==
PROVIDERS: Emergency Provider Family Medicine; PCP Nurse Practitioner Family
DX: R07.89 Other chest pain (principal); K21.9 Gastro-esophageal reflux disease without esophagitis; E78.5 Hyperlipidemia, unspecified; I12.9 Hypertensive chronic kidney disease with stage 1 through stage 4 chronic kidney disease, or unspecified chronic kidney disease; N18.9 Chronic kidney disease, unspecified
CPT/HCPCS: 36415; 71045; 80053; 84484; 85025; 93005; 99285; J9999